=== PATIENT | female | born 1955 | race Caucasian/White ===

== ENCOUNTER 2020-12-27 10:41 | Emergency (ER) | payer OTHER ==
[~2020-12-27] VITALS: Ht 149.9 cm; Wt 108.9 kg
--- NOTE | 2020-12-27 14:04 | NUR ---
ERP AT NOW.
[2020-12-27] MEDS ORDERED: FLUT1DIS3 INH (14:29)
[2020-12-27] MEDS ORDERED: DILT-88 PO (14:29)
[2020-12-27] MEDS ORDERED: ASPI-1026 PO (14:29)
[2020-12-27] MEDS ORDERED: D-MA500C PO (14:29)
[2020-12-27] MEDS ORDERED: FURO20TA3 PO (14:29)
[2020-12-27] MEDS ORDERED: APIX5TAB PO (14:29)
[2020-12-27] MEDS ORDERED: GABA600T7 PO (14:29)
[2020-12-27] MEDS ORDERED: SITA100T PO (14:29)
[2020-12-27] MEDS ORDERED: ROSU5TAB PO (14:29)
[2020-12-27] MEDS ORDERED: METF500T27 PO (14:29)
[2020-12-27] MEDS ORDERED: BIOT1TAB2 PO (14:29)
--- NOTE | 2020-12-27 14:35 | NUR ---
PT CALM, NO S/S OF DISTRESS. SAME TRIAGE NOTE. PT IS HERE FROM [place] FOR A CONVENTION UNTIL SATURDAY.
--- NOTE | 2020-12-27 15:01 | NUR ---
REPORT RECEIVED FROM JORDAN HU, ASSUMING CARE OF PT AT THIS TIME.
--- NOTE | 2020-12-27 15:06 | NUR ---
LAB AT BEDSIDE
[2020-12-27 15:34] LABS: ALBUMIN 3.9 g/dL (3.4-5.0); ANION GAP 9 mmol/L (5-15); CHLORIDE 106 mmol/L (98-107)
[2020-12-27 15:39] LABS: ALANINE AMINOTRANSFERASE 36 U/L (12-78); ALKALINE PHOSPHATASE 60 U/L (45-117); BILIRUBIN,TOTAL 0.5 mg/dL (0.2-1.0); CREATININE 0.87 mg/dL (0.55-1.02); TOTAL PROTEIN 8.1 g/dL (6.4-8.2)
[2020-12-27 15:43] LABS: BASOPHILS % (AUTO) 0 % (0-1); EOSINOPHILS % (AUTO) 3 % (1-7); LYMPHOCYTES % (AUTO) 16 % (22-44); MEAN CORPUSCULAR HEMOGLOBIN 28.1 pg (27.0-34.8); MEAN CORPUSCULAR HGB CONC 32.3 g/dL (32.4-35.8); MEAN PLATELET VOLUME 8.6 fL (7.4-10.4); MONOCYTES % (AUTO) 6 % (2-9); NEUTROPHILS % (AUTO) 75 % (42-75); PLATELET COUNT 296 x10^3/uL (130-400); RED CELL DISTRIBUTION WIDTH 14.8 % (9.6-15.2)
[2020-12-27 15:54] LABS: INTERNATIONAL NORMALIZED RATIO 1.07 (0.93-1.1); PROTHROMBIN TIME 11.4 Seconds (9.6-11.5)
--- NOTE | 2020-12-27 16:04 | NUR ---
pt presents to ed with c/o cp x3 days that radiates to L arm and back. pt ambulatory with steady gait, a&o, resps even and unlabored, vss, lioneln. karen Lancaster at bedside for eval.
--- NOTE | 2020-12-27 17:08 | NUR ---
SIMIN RN: REPORT FROM JOSIAH HU. DR. STARK AT BEDSIDE DISCUSSING POC AND TEST RESULTS WITH PT AND SPOUSE. ERP RECOMMENDING ADMISSION TO HOSPITAL, PT AND SPOUSE [place] FROM OUT OF [place], REQUESTING TO SPEAK TO ONE ANOTHER IN PRIVATE AND LET MD KNOW DECISION TO ADMIT OR LEAVE AMA. DR. STARK DISCUSSED RISKS AND BENEFITS WITH PT AND SPOUSE, BOTH VERBALIZED UNDERSTANDING.
--- NOTE | 2020-12-27 17:28 | NUR ---
BREAK RN: BEDSIDE REPORT AND TRANSFER OF CARE BACK TO PRIMARY RN JOSIAH AT THIS TIME.
[2020-12-27 17:31] VITALS: BP 157/86
--- NOTE | 2020-12-27 18:11 | NUR ---
TRAVIS Reyez at bedside to discuss poc and pt wishes to not be admitted, pt educated on risks of condition, verbalizes understanding.
--- NOTE | 2020-12-27 18:34 | NUR ---
pt educated on dc instructions, verbalized understanding. taken to dc desk via personal wheelchair accompanied by , vss
== END 2020-12-27 18:37 | disposition home or self-care (01) ==
LOC: ED 10:46
DX: K62.5 Hemorrhage of anus and rectum (principal); I10 Essential (primary) hypertension; E11.9 Type 2 diabetes mellitus without complications
CPT/HCPCS: 36415; 80053; 85025; 85610; 85730; 86850; 86900; 99283